=== PATIENT | female | born 1955 | race Caucasian/White ===

== ENCOUNTER → 2025-03-01 | Outpatient (CLI) | payer OTHER ==
[~2025-03-01] MED LIST: IOHEXOL-350 75 ML VIAL IV ONE
--- NOTE | 2025-03-01 10:40 | HMCIMG ---
CT ABDOMEN/PELVIS W/WO CONTRAS HISTORY: Gastric pain COMPARISON: None TECHNIQUE: Multiple sequential axial images of the abdomen and pelvis were obtained from the dome of the diaphragm through symphysis pubis. Patient was given 75 cc of Omnipaque through intravenous route. Oral contrast was not given. FINDINGS: No pleural effusion is seen bilaterally. There is no evidence of parenchymal disease or pulmonary nodule of the visualized lower lungs. Degenerative changes of the thoracolumbar spine are present. The heart is not enlarged. Then liver is enlarged measuring 18 cm. Nonspecific gallbladder wall thickening is seen. 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 There is small periumbilical hernia with bowel content. No bowel obstruction is seen. There is diverticulosis. 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 The liver, spleen, adrenal glands and pancreas are unremarkable. There is no evidence of hydronephrosis bilaterally. No evidence of renal stone is seen. Fecal material is seen in the colon. There are normal size retroperitoneal and mesenteric lymph nodes. No ascites is seen. Atherosclerotic changes are present. Appendix is not seen. Pelvic sidewalls are symmetric bilaterally. Bladder is well distended without wall thickening. IMPRESSION: 1. Small periumbilical hernia with bowel content. No bowel obstruction is seen. CT was performed with one or more following dose reduction techniques: automated exposure control, adjustment of the mA and kv according to patient's size, or use of a iterative reconstruction technique.
== END | disposition home or self-care (01) ==
LOC: RAH 08:50
PROVIDERS: ATTEND Internal Medicine Gastroenterology
DX: K42.9 Umbilical hernia without obstruction or gangrene (principal); K57.90 Diverticulosis of intestine, part unspecified, without perforation or abscess without bleeding; K82.8 Other specified diseases of gallbladder; N32.89 Other specified disorders of bladder; R16.0 Hepatomegaly, not elsewhere classified; R19.5 Other fecal abnormalities; R10.32 Left lower quadrant pain; M47.815 Spondylosis without myelopathy or radiculopathy, thoracolumbar region; I70.90 Unspecified atherosclerosis
CPT/HCPCS: 74178; Q9967

== ENCOUNTER → 2025-06-16 | Outpatient (CLI) | payer OTHER ==
[~2025-06-16] MED LIST changes: +GADOTERATE MEGLUMINE 10 MMOL/20 ML VIAL IV ONE; -IOHEXOL-350 75 ML VIAL IV ONE
--- NOTE | 2025-06-16 16:21 | HMCIMG ---
EXAM: MR Abdomen with and without Intravenous Contrast. CLINICAL HISTORY: R93.2 Abnormal findings on diagnostic imaging of liver and biliary tract TECHNIQUE: Multisequence, multiplanar magnetic resonance images of the abdomen with and without intravenous contrast. Series acquired: 3 - COR SSFSE ARC - TR: 738.5 - TE: 92.5 - ET: 1.0 - Thk: 5.0 5 - AX SSFSE BH ARC - TR: 676.8 - TE: 87.6 - ET: 1.0 - Thk: 5.0 6 - AX 3D DUALECHO BH - TR: 6.5 - TE: 2.1 - ET: 1.0 - Thk: 4.4 7 - AX T2 FRFSE FATSAT MINNIE ARC - TR: 84533.2 - TE: 106.5 - ET: 18.0 - Thk: 4.0 8 - AX DWI B=500 FB - TR: 3400.0 - TE: 59.0 - ET: 1.0 - Thk: 6.0 11 - G+ COR LAVA ARC - TR: 3.6 - TE: 1.7 - ET: 1.0 - Thk: 4.4 900 - AX LAVA DYN 5 PHASE - TR: 4.5 - TE: 1.9 - ET: 1.0 - Thk: 4.4 901 - PH1/AX LAVA DYN 5 PHASE - TR: 4.5 - TE: 1.9 - ET: 1.0 - Thk: 4.4 902 - PH2/AX LAVA DYN 5 PHASE - TR: 4.5 - TE: 1.9 - ET: 1.0 - Thk: 4.4 903 - PH3/AX LAVA DYN 5 PHASE - TR: 4.5 - TE: 1.9 - ET: 1.0 - Thk: 4.4 904 - PH4/AX LAVA DYN 5 PHASE - TR: 4.5 - TE: 1.9 - ET: 1.0 - Thk: 4.4 905 - PH5/AX LAVA DYN 5 PHASE - TR: 4.5 - TE: 1.9 - ET: 1.0 - Thk: 4.4 906 - FT: PH1/AX LAVA DYN 5 PHASE - TR: 4.5 - TE: 1.9 - ET: 1.0 - Thk: 20.0 CONTRAST: COMPARISON: None provided. FINDINGS: LOWER THORAX: No pleural effusion. LIVER: Unremarkable. GALLBLADDER AND BILE DUCTS: gallstone is seen versus sludge ball. No biliary ductal dilatation is evident. PANCREAS: Unremarkable. No ductal dilation. SPLEEN: Unremarkable. ADRENALS: Unremarkable. KIDNEYS: The kidneys appear within normal limits. No hydronephrosis or mass evident.Right kidney is malrotated STOMACH AND BOWEL: Limited evaluation of the stomach and bowel demonstrates no acute process. LYMPH NODES: No lymphadenopathy is evident. VASCULATURE: No abdominal aortic aneurysm. IMPRESSION: gallstone versus sludge ball No acute intra-abdominal abnormality. /Chappell
== END | disposition home or self-care (01) ==
LOC: RAH 09:28
PROVIDERS: ATTEND Internal Medicine Gastroenterology
DX: K82.9 Disease of gallbladder, unspecified (principal)
CPT/HCPCS: 74183; A9575